=== PATIENT | female | born 1995 | race Two or more races ===

== ENCOUNTER 2025-03-18 04:16 | Emergency (ER) | payer MEDICAID, OTHER ==
[~2025-03-18] VITALS: Ht 170.2 cm; Wt 128.0 kg
[2025-03-18 04:37] VITALS: BP 165/99; PULSE 70; RESP 18; TEMP 98.4; O2SAT 100
--- NOTE | 2025-03-18 04:39 | ED.PDOC ---
History of Present Illness(SKN HPI Comments Pt presents with cc of possible insect bite to her forehead, reporting she woke up with the possible bite 3 days ago. Pt denies any fever, but reports n/v x this morning. Denies fever, chills, nausea, vomiting, drainage, chest pain, shortness breath difficulty breathing. Chief Complaint: Insect Bite Time Seen by MD: 04:23 History of Present Illness: Nurses Notes, Medications, Allergies Allergies: Coded Allergies: No Known Drug Allergy (Verified Allergy, Unknown, 03/18/25) Home Meds Active Scripts Ondansetron Odt 4MG Tab (ZOFRAN PO) 4 Mg Tb, 4 MG PO TID PRN for 4 Days, #12 TAB ODT TAB-DISSOLVE IN MOUTH, THEN SWALLOW Prov:ROB FUENTES STUDENT COUNSELOR 03/18/25 Doxycycline Hyclate (Doxycycline Hyclate) 100 Mg Cap, 100 MG PO BID for 7 Days, #14 CAP Prov:GINAROB STUDENT COUNSELOR 03/18/25 Information Source: Patient Mode of Arrival: Ambulatory Past Medical History PAST MEDICAL HISTORY: Denies Surgical History: Denies all surgeries NURSE NAVIGATOR History: No Pertinent NURSE NAVIGATOR History Family History Family History: Unknown Social History Smoker: Non-Smoker Alcohol: Denies ETOH Use Drugs: Denies Drug Use All Other Systems: Reviewed and Negative (See HPI) Physical Exam General Appearance: No Apparent Distress, Normal HEENT: Normal ENT Inspection, Pharynx Normal, TMs Normal Neck: Full Range of Motion, Non-Tender Respiratory: Lungs Clear, No Respiratory Distress, Normal Breath Sounds Cardiovascular: No Murmur, Normal Peripheral Pulses, Regular Rate/Rhythm Breast Exam: Deferred Gastrointestinal: Non Tender, Soft Genitalia: Deferred Pelvic: Deferred Rectal: Deferred Extremities: Normal range of motion, Non-tender Musculoskeletal : Apperance: Normal Neurologic: Alert, No Motor Deficits, Normal Affect, Normal Mood, No Sensory Deficits Cerebellar Function: Normal Reflexes: NOT DONE Skin: Dry, Normal Color, Warm, Wounds (Left-sided forehead above left eye noted quarter size lesion erythemic indurated with a appears to be puncture wounds no noted drainage trace erythema no noted streaking tenderness on palpation non fluctuant) Lymphatic: No Adenopathy Was a procedure done? Was a procedure done?: No Differential Diagnosis (INTG) Differential Diagnosis: Abrasion, Cellulitis, Contusion, Insect Envenomation, Puncture Wound Differential Diagnosis: Abscess X-Ray, Labs, Meds, VS Vital Signs Date Time Temp Pulse Resp B/P (MAP) Pulse Ox O2 Delivery O2 Flow Rate FiO2 03/18/25 04:37 98.4 70 18 165/99 (121) 100 98.4 03/18/25 04:37 70 18 100 Room Air 03/18/25 04:21 98.4 70 16 165/92 100 98.4 X-Ray, Labs, Meds, VS Comment Likely infected. Script trial of antibiotics Advised to take medication as prescribed side effects discussed. Advised to rest increase p.o. fluids with electrolytes. Avoid under water activities while with infection. Follow up with your PCP in three days if no improvement. ER return precautions given patient indicates understanding and agrees with discharge plan of care. Time of 1ST Reevaluation: 04:23 Reevaluation 1ST: Unchanged Time of 2ND Reevaluation: 04:46 Reevaluation 2ND: Improved Patient Education/Counseling: Diagnosis, Treatment, Need For Follow Up Family Education/Counseling: No Family Present SEPSIS Sepsis Screen Date sepsis recognized/suspect: Mar 18, 2025 Time Sepsis recognized/suspect: 421 Recent Procedure: No On Antibiotic Therapy: No Respiratory Rate >20: No Heart Rate >90: No Temp<36 C (96.8 F) or >38.3 C: No SBP <90 or MAP <65 mmHG: No New Acute Mental Status Change: No Is the patient on CPAP, BIPAP,: No Physician Orders Ondansetron Po (Zofran Po) (03/18/25 04:45) Doxycycline Tablet (Vibramycin Tablet) (03/18/25 04:45) Vital Signs Date Time Temp Pulse Resp B/P (MAP) Pulse Ox O2 Delivery O2 Flow Rate FiO2 03/18/25 04:37 98.4 70 18 165/99 (121) 100 98.4 03/18/25 04:37 70 18 100 Room Air 03/18/25 04:21 98.4 70 16 165/92 100 98.4 Departure 1 Departure Time of Disposition: 04:43 Impression: Primary Impression: Insect bite Qualified Codes: S00.86XA - Insect bite (nonvenomous) of other part of head, initial encounter; W57.XXXA - Bitten or stung by nonvenomous insect and other nonvenomous arthropods, initial encounter Disposition: HOME / SELF CARE / HOMELESS Condition: Stable e-Prescriptions Ondansetron Odt 4MG Tab (ZOFRAN PO) 4 Mg Tb 4 MG PO TID PRN for 4 Days, #12 TAB ODT TAB-DISSOLVE IN MOUTH, THEN SWALLOW Prov: ROB FUENTES 03/18/25 Doxycycline Hyclate (Doxycycline Hyclate) 100 Mg Cap 100 MG PO BID for 7 Days, #14 CAP Prov: ROB FUENTES 03/18/25 Discharged With: Self Critical Care Note Critical Care Time?: No Stability Stability form required: No ROB FUENTES Mar 18, 2025 04:39
[2025-03-18] MEDS ORDERED: DOXY100C4 PO (04:45)
[2025-03-18] MEDS ORDERED: ZOFR4T PO (04:45)
[2025-03-18] MEDS: ONDANSETRON ODT 4 MG TAB PO ONE (04:47)
[2025-03-18] MEDS: DOXYCYCLINE 100 MG TAB/CAP PO ONE (04:47)
== END 2025-03-18 04:56 | disposition home or self-care (01) ==
LOC: ER 04:16
DX: S00.86XA Insect bite (nonvenomous) of other part of head, initial encounter (principal); W57.XXXA Bitten or stung by nonvenomous insect and other nonvenomous arthropods, initial encounter; Y93.89 Activity, other specified; Y92.89 Other specified places as the place of occurrence of the external cause; Y99.8 Other external cause status
CPT/HCPCS: 99283; Q0162